=== PATIENT | female | born 1955 | race Caucasian/White ===

== ENCOUNTER 2018-10-15 07:04 | Day surgery (SDC) | payer BC ==
[2018-10-15] MEDS ORDERED: MIDAZOLAM 1 MG/ML 2 ML INJ ×3 (09:26)
[2018-10-15] MEDS ORDERED: FENTAnyl 50 MCG/ML VIAL (09:26)
== END 2018-10-15 14:27 | disposition home or self-care (01) ==
LOC: GIL 07:04
DX: Z12.11 Encounter for screening for malignant neoplasm of colon (principal); K64.4 Residual hemorrhoidal skin tags; D12.0 Benign neoplasm of cecum
CPT/HCPCS: 45385; 88305